=== PATIENT | male | born 1955 | race Hispanic/Latino ===

== ENCOUNTER 2018-02-17 10:51 | Emergency (ER) | payer OTHER ==
[2018-02-17 10:58] VITALS: TEMP 99
--- NOTE | 2018-02-17 11:11 | C.PDOC ---
History Of Present Illness 62 year old male patient presents to the ER with c/o right foot and ankle swelling. Patient reports x1 week ago he sustained an injury to right big toe when sledge hummer fell on it, which results in ecchymosis and swelling on area. Patient then states toe pain was minimal, however, 2 days ago his right foot and ankle became red and swollen. Associated symptoms includes fever at the time 2 days ago only. Patient denies trauma on the right ankle and foot, and no fever at the moment. Chief Complaint (Nursing): Lower Extremity Problem/Injury History Per: Patient History/Exam Limitations: no limitations Onset/Duration Of Symptoms: Days (x2) Current Symptoms Are (Timing): Still Present Past Medical History Reviewed: Historical Data, Nursing Documentation, Vital Signs Vital Signs: Last Vital Signs Temp 99 F 02/17/18 10:55 Pulse 69 02/17/18 13:08 Resp 18 02/17/18 13:08 BP 110/68 02/17/18 13:08 Pulse Ox 98 02/17/18 14:32 - Medical History PMH: No Chronic Diseases Family History: States: No Known Family Hx - Social History Hx Alcohol Use: No Hx Substance Use: No - Immunization History Hx Tetanus Toxoid Vaccination: No Hx Influenza Vaccination: Yes Hx Pneumococcal Vaccination: Yes Review Of Systems Except As Marked, All Systems Reviewed And Found Negative. Constitutional: Negative for: Fever, Other (trauma on rigth foot/ankle) Musculoskeletal: Positive for: Foot Pain Skin: Positive for: Other (swelling of right foot and ankle) Physical Exam - Physical Exam Appears: Non-toxic, No Acute Distress Skin: Normal Color, Warm, Dry Head: Atraumatic, Normacephalic Eye(s): bilateral: Normal Inspection Neck: Normal ROM, Supple Cardiovascular: Rhythm Regular Respiratory: Other (speaking in full sentences) Extremity: Normal ROM, Tenderness (to the right ankle and foot), No Pedal Edema , Capillary Refill (less 5 sec), No Deformity, Swelling (right foot and ankle), Other (ecchymossis on 1st right toe noted) Pulses: Left Dorsalis Pedis: Normal, Right Dorsalis Pedis: Normal Neurological/Psych: Oriented x3, Normal Speech, Normal Motor, Normal Sensation, Normal Reflexes Gait: Steady ED Course And Treatment - Laboratory Results Result Diagrams: 02/17/18 11:28 02/17/18 11:28 Lab Interpretation: Abnormal (esr and crp) O2 Sat by Pulse Oximetry: 98 (RA) Pulse Ox Interpretation: Normal - Other Rad right foot X-Ray: Interpreted by Me Interpretation: 1st toe fracture Medical Decision Making Medical Decision Making: Impression: swollen right ankle and foot with no trauma Differential Diagnosis: cellulitis Plans: -- blood work -- XR right foot -- Tylenol Reassess: The patient declines to have further medical evaluation and treatment and wishes to leave the Emergency Department. This action is against my medical advice to the patient, and with informed refusal. The patient was told that evaluation and treatment are necessary and a full explanation of the rationale was given. The risks of leaving were explained to the patient and include, but are not limited to, worsening of known or currently unknown conditions, permanent disability and from undiagnosed or untreated conditions The patient has the capacity to make this informed decision and understands the clinical situation and my explanation of the risks of leaving. The patient voluntarily accepts these risks, and a signed AMA form documenting our conversation was obtained. The patient was given the opportunity to ask questions and reconsider. The patient was encouraged to return to the Emergency Department at any time for further care. Disposition Counseled Patient/Family Regarding: Studies Performed, Diagnosis, Need For Followup, Rx Given - Disposition Referrals: Non [facility] Provider, [Non-Staff] - Disposition: AGAINST MEDICAL ADVICE Disposition Time: 12:37 Condition: STABLE Additional Instructions: YOU ARE LEAVING HOSPITAL AGAINST MEDICAL ADVISE. PLEASE FOLLOW UP WITH YOUR PRIMARY CARE DOCTOR AND ENGLISH DRAWER SOON POSSIBLE. TAKE ANTIBIOTICS PRESCRIBED AND PROBIOTICS OTC. MOTRIN OR TYLENOL NEEDED FOR PAIN. DRINK PLENTY OF FLUIDS. PLEASE DO NOT HESITATE RETURN TO ED IF NOT FEELING BETTER WITH ANTIBIOTICS. Prescriptions: Sulfamethoxazole/Trimethoprim [Bactrim DS 800 mg-160 mg] 2 tab PO BID #40 tab Cephalexin [cephalexin] 500 mg PO QID #28 cap Instructions: Toe Fracture (DC), Cellulitis (Skin Infection), Adult (DC) Forms: [employer] [facility] ([place]ri[place]), General Discharge Instructions - Clinical Impression Clinical Impression: Cellulitis of foot, Toe fracture, right
[2018-02-17 11:35] LABS: BASO # 0.1 K/uL (0.0-0.2); BASO % 0.8 % (0.0-2.0); EOS # 0.1 K/uL (0.0-0.7); EOS % 0.7 % (0.0-4.0); HEMOGLOBIN 14.8 g/dL (12.0-18.0); LYMPH # 0.9 K/uL (1.0-4.3); MEAN CELL VOLUME 90.8 fL (80.0-94.0); MEAN CORPUSCULAR HEMOGLOBIN 31.5 pg (27.0-31.0); MEAN CORPUSCULAR HGB CONC 34.7 g/dL (33.0-37.0); MEAN PLATELET VOLUME 8.5 fL (7.2-11.7); MONO # 0.6 K/uL (0.0-0.8); MONO % 7.1 % (0.0-10.0); NEUT # 6.8 K/uL (1.8-7.0); NEUT % 80.4 % (50.0-75.0); RBC 4.69 Mil/uL (4.40-5.90); RED CELL DISTRIBUTION WIDTH 13.3 % (11.5-14.5); WHITE BLOOD COUNT 8.4 K/uL (4.8-10.8)
[2018-02-17 11:51] LABS: ALB/GLOB RATIO 1.3 (1.0-2.1); ALT/SGPT 32 U/L (21-72); AST/SGOT 30 U/L (17-59); BLOOD UREA NITROGEN 19 mg/dL (9-20); CALCIUM 8.9 mg/dl (8.6-10.4); GFR AFRICAN-AMERICAN > 60; GFR NON-AFRICAN AMERICAN 56
[2018-02-17] MEDS ORDERED: cefTRIAXone IV 1 gm in Dextros 50 ML IV ONE (12:09)
[2018-02-17] MEDS ORDERED: Tmp-Smz 800 mg-160 mg DS Tab PO ONE (12:11)
[2018-02-17] MEDS ORDERED: Tmp-Smz 800 mg-160 mg DS Tab ONE (12:23)
[2018-02-17 13:09] VITALS: BP 110/68; PULSE 69; RESP 18
[2018-02-17 13:27] VITALS: O2SAT 98
--- NOTE | 2018-02-17 21:41 | RAD ---
Date of service: 02/17/2018 PROCEDURE: Right Foot Radiographs. HISTORY: pain r/o fx COMPARISON: None. FINDINGS: BONES: There is acute nondisplaced fracture at the distal phalanx of the right big toe. JOINTS: Normal. SOFT TISSUES: Normal. OTHER FINDINGS: None. IMPRESSION: Acute nondisplaced fracture at the distal phalanx of the right 1st toe.
== END 2018-02-17 12:40 | disposition left against medical advice (07) ==
LOC: C.ER 10:51
DX: L03.115 Cellulitis of right lower limb (principal); S92.424A Nondisplaced fracture of distal phalanx of right great toe, initial encounter for closed fracture; W20.8XXA Other cause of strike by thrown, projected or falling object, initial encounter
CPT/HCPCS: 73630; 80053; 85025; 85651; 86140; 87040; 96365; 99283; J0696